=== PATIENT | female | born 1935 | race Asian ===

== ENCOUNTER 2020-08-07 16:39 | Outpatient (RCR) | payer SELFPAY ==
[~2020-08-07 16:39] MED LIST: ASPIRIN E.C. 8181 MG PO; CENTRUM SILVER1 TA3 PO; CEPHALEXIN500 M1 PO; GLUCOSAMINE CHO1 CAP PO; HCTZ 25MG TAB25 MG PO; LIPITOR 10MG10 MG PO; LOPRESSOR 550 MG/TAB PO; MULTAQ400 MG PO; TOPROL XL 25MG25 MG PO; XARELTO20 MG PO; ZOFRAN 4MG T4 MG/TAB PO
== END 2020-08-08 | disposition home or self-care (01) ==
LOC: COL.CR
DX: Z02.89 Encounter for other administrative examinations (principal)

== ENCOUNTER 2020-11-06 15:58 | Outpatient (RCR) | payer SELFPAY | END 2020-11-09 | disposition home or self-care (01) | LOC: COL.CR | DX: Z02.89 Encounter for other administrative examinations (principal) ==

== ENCOUNTER 2021-06-27 14:41 | Outpatient (RCR) | payer SELFPAY | END 2021-06-28 | LOC: COL.CR | DX: Z29.8 Encounter for other specified prophylactic measures (principal) ==

== ENCOUNTER 2021-07-25 11:58 | Outpatient (RCR) | payer SELFPAY | END 2021-07-28 | LOC: COL.CR | DX: Z29.8 Encounter for other specified prophylactic measures (principal) ==

== ENCOUNTER 2021-08-24 12:07 | Outpatient (RCR) | payer SELFPAY | END 2021-08-28 | LOC: COL.CR | DX: Z29.8 Encounter for other specified prophylactic measures (principal) ==

== ENCOUNTER 2021-09-26 14:45 | Outpatient (RCR) | payer SELFPAY | END 2021-09-27 | LOC: COL.CR | DX: Z29.8 Encounter for other specified prophylactic measures (principal) ==

== ENCOUNTER 2021-10-24 13:19 | Outpatient (RCR) | payer SELFPAY | END 2021-10-28 | LOC: COL.CR | DX: Z29.8 Encounter for other specified prophylactic measures (principal) ==

== ENCOUNTER → 2021-11-28 | Outpatient (RCR) | payer SELFPAY | LOC: COL.CR | DX: Z29.8 Encounter for other specified prophylactic measures (principal) ==